=== PATIENT | male | born 2000 | race Caucasian/White ===

== ENCOUNTER 2020-08-22 23:30 | Emergency (ER) | payer BC, OTHER ==
[~2020-08-22] VITALS: Ht 177.8 cm; Wt 60.0 kg
[2020-08-22 23:57] LABS: BASO % 0 % (0-3); EOS % 0 % (0-3); HEMATOCRIT 46.6 % (39.0-53.0); HEMOGLOBIN 16.1 g/dL (13.0-17.5); LYMPH # 1.3 x10^3/uL (1.0-4.8); LYMPH % 11 % (24-48); MEAN CORPUSCULAR HEMOGLOBIN 30 pg (25-35); MEAN CORPUSCULAR HGB CONC 35 g/dL (31-37); MEAN CORPUSCULAR VOLUME 88 fL (79-100); MONO # 0.2 x10^3/uL (0.0-1.1); MONO % 2 % (0-9); NEUT # 10.2 x10^3/uL (1.8-7.7); NEUT % 87 % (31-73); PLATELET COUNT 208 x10^3/uL (140-400); RED BLOOD COUNT 5.29 x10^6/uL (4.30-5.70); RED CELL DISTRIBUTION WIDTH 13.3 % (11.5-14.5); WHITE BLOOD COUNT 11.7 x10^3/uL (4.0-11.0)
[2020-08-23 00:03] LABS: PROTHROMBIN TIME PATIENT 15.1 SEC (11.7-14.0)
[2020-08-23 00:08] LABS: CALCIUM 9.7 mg/dL (8.5-10.1); CREATININE 1.1 mg/dL (0.7-1.3); GFR 83.7; POTASSIUM 4.6 mmol/L (3.5-5.1)
[2020-08-23 00:28] LABS: BARBITURATES NEG (NEG); BENZODIAZEPINES NEG (NEG); CANNABINOIDS POS (NEG); COCAINE NEG (NEG); METHADONE NEG (NEG); OPIATES NEG (NEG); PHENCYCLIDINE NEG (NEG)
[2020-08-23 00:33] LABS: AMPHETAMINE/METHAMPHETAMINE NEG (NEG)
[2020-08-23] MEDS ORDERED: IV NORMAL SALINE 1000ML BAG 1,000 ML IV ONE (01:00)
[2020-08-23] MEDS ORDERED: METOCLOPRAMIDE HCL 10 MG/2 ML VIAL. IVP ONE (01:00)
[2020-08-23] MEDS ORDERED: FAMOTIDINE 20 MG/2 ML VIAL IVP ONE (01:00)
[2020-08-23 01:03] VITALS: BP 121/65
--- NOTE | 2020-08-23 01:06 | RAD ---
XR CHEST 1V 08/23/2020 12:51 AM INDICATION: Nausea and vomiting COMPARISON: None available TECHNIQUE: Portable frontal view of the chest is provided. FINDINGS: The cardiomediastinal silhouette is within normal limits. Lungs are clear. There are no significant pleural effusions. There is no pulmonary vascular congestion. No pneumothora x. No suspicious osseous abnormality. IMPRESSION: There is no acute cardiopulmonary process. Electronically signed by: Alina Kathleen MD (08/23/2020 1:04 AM) [facility]
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
[2020-08-23] MEDS ORDERED: ONDA4TAB12 PO (01:29)
[2020-08-23] MEDS ORDERED: CAPS42.514 TP (01:29)
[2020-08-23 02:36] LABS: % BANDS 3 % (0-9); % LYMPHS 11 % (24-48); % SEGS 86 % (35-66); PLT ESTIMATE ADEQUATE (ADEQUATE)
--- NOTE | 2020-08-23 04:46 | EKG ---
[facility] [address] [place] [address] Test Date: 2020-08-22 Test Time: 23:47:54 Pat Name: MARY ANN RILEY Department: Room: Gender: M Gill Box Tender: : 2000 Requested By: DON ALVAREZ Order Number: [id number] Reading MD: Demario Montiel Measurements Intervals [place] Rate: 72 P: 90 MS: 138 QRS: -23 QRSD: 98 T: 68 QT: 368 QTc: 404 Interpretive Statements SINUS RHYTHM ATRIAL PREMATURE COMPLEX(ES) LEFTWARD AXIS INCOMPLETE RIGHT BUNDLE BRANCH BLOCK Electronically Signed On 08-23-2020 9:26:25 CYCLE ANALYST by Demario Montiel
== END 2020-08-23 01:37 | disposition home or self-care (01) ==
LOC: ER 23:30
DX: R11.2 Nausea with vomiting, unspecified (principal); F12.90 Cannabis use, unspecified, uncomplicated; R10.9 Unspecified abdominal pain; F17.200 Nicotine dependence, unspecified, uncomplicated
CPT/HCPCS: 36415; 71045; 80048; 80307; 83690; 85007; 85025; 85610; 85730; 93005; 96361; 96374; 96375; 99285; G0480; J2765; J3490; J7030